=== PATIENT | male | born 1940 | race Caucasian/White ===

== ENCOUNTER 2022-12-03 08:54 | Observation (INO) ==
--- NOTE | 2022-12-03 09:11 | Emergency Department Note ---
Impression & Plan Incarcerated left inguinal hernia, Abdominal pain ED Provider Note NAME: TIMI YARBROUGH JR AGE: 82 SEX: M : 1940 ARRIVES VIA: Walk-In INFORMANT: Patient ED PROVIDER(S): Javi Jj DO CHIEF COMPLAINT: abdominal pain HPI: Patient is an 82-year-old male who presents to the ER for abdominal pain. He notes he has been having this off and on since Friday and his groin by his hernia. He was seen and evaluated and discharged. He followed up with general surgery and they sent him in today for the OR. He denies any headache or change in vision. Constant pain. No dysuria, urgency, or frequency. Cannot have a bowel movement. Has not moved his bowels in 2 days. No other exacerbating or remitting factors. PAST MEDICAL HISTORY:See Below PAST SURGICAL HISTORY:See Below FAMILY HISTORY:See Below SOCIAL HISTORY:See Below HOME MEDICATIONS:See Below ALLERGIES:See Below VITALS:See Below PHYSICAL EXAMINATION: GENERAL: Sitting up in bed, lert, well appearing, well nourished, no distress, non-toxic EYE EXAM: normal conjunctiva. OROPHARYNX: mucous membranes are moist LUNGS: Clear to auscultation. Normal chest wall mechanics HEART: no murmurs, S1 normal and S2 normal ABDOMEN: abdomen soft, non-tender, normo-active bowel sounds, no masses, no rebound or guarding. : Right inguinal hernia which is nonreducible and tender UPPER EXTREMITIES: upper extremities are grossly normal. LOWER EXTREMITIES: No pitting edema. NEURO EXAM: Normal sensorium, cranial nerves II-XII grossly intact, normal speech, no gross weakness of arms, no gross weakness of legs. MEDICAL DECISION MAKING: Patient is an 82-year-old male who presents ER for above-stated complaint. External records reviewed. Upon arrival discussed with Jodie Hoang from general surgery who recommends hold on CT and they will evaluate and likely take to the OR. IV was established blood work was obtained. Labs show no significant leukocytosis or anemia. BMP with mild hypokalemia 2.9. LFTs bilirubin was unremarkable. Lipase was normal. COVID was negative. Discussed with general surgery. Patient was evaluated at bedside. Patient was taken and admitted to the general surgery service with above-stated complaint. Patient was taken to the OR. Triage Nursing notes reviewed. Limited review of prior medical records performed Vital Signs: reviewed and remarkable for no significant abnormalities Differential diagnosis: Differential diagnoses includes but is not limited to gastritis, peptic ulcer disease, GERD, gallbladder disease, pancreatitis, small bowel obstruction, appendicitis, diverticulitis, hernia, urinary tract infection, torsion, perforation, trauma, infectious. ER treatment provided: See below Diagnostics interpreted by me include EKG and cardiac monitoring as listed be low: -Cardiac Monitoring: An order was placed for continuous cardiac monitoring. The monitor shows a rate of 60 with sinus rhythm. -ECG: none -Laboratory studies:Interpreted by me as stated above in MDM and shown below. Imaging studies: Xrays: As interpreted by me:none CTs show: none Consultation(s): D/w Gen surg and they took Pt to the OR. Procedures:none Critical Care: None Past Med/Surg History Medical History Hypertension Kidney stones Surgical History History of arthroscopic knee surgery History of surgery kidney stone removal Family History Sister Hypertension Mother Hypertension Social History Smoking Status: Never smoker Tobacco Type: Smokeless Tobacco (Dip or Chew) Hx Alcohol Use: No Preferred Language: Spanish marital status: current occupational status: retired How many Children do You have: 4 Feels Safe at Home: Yes during the past year weight has: remained stable Allergies Allergies Allergy/AdvReac Type Severity Reaction Status Date / Time No Known Allergies Allergy Unverified 12/03/22 08:35 Home Meds Home Medications Medication Instructions Recorded Confirmed hydrochlorothiazide 25 mg tablet 25 mg PO DAILY 12/03/22 12/03/22 ibuprofen 200 mg capsule 200 mg PO Q6H PRN 12/03/22 12/03/22 irbesartan 300 mg tablet 300 mg PO DAILY 12/03/22 12/03/22 Results & Data (ED) Vital Signs Vital Signs - 24 hr 12/03/22 08:59 12/03/22 09:30 12/03/22 09:55 Temperature 36.8 C Temperature Source Temporal Artery Scan Pulse Rate 73 67 Pulse Rate [Finger] Pulse Rate from SpO2 Sensor Pulse Rhythm [Finger] Pulse Strength [Finger] Respiratory Rate 16 Respiratory Effort / Characteristics Non-Labored Spontaneous Respiratory Depth Normal Respiratory Pattern Blood Pressure 176/94 H Blood Pressure [Left Arm] Blood Pressure Mean 121 Blood Pressure Mean [Left Arm] Blood Pressure Position [Left Arm] Pulse Oximetry 97 Oxygen Delivery Method Room Air Room Air Sepsis Recent Fever Within 48 Hours No Sepsis New/Unexplained Change in Mental Status No Sepsis Action Taken by Nursing No Action Required 12/03/22 11:41 12/03/22 09:15 12/03/22 09:16 Temperature Temperature Source Pulse Rate 65 Pulse Rate [Finger] Pulse Rate from SpO2 Sensor 65 Pulse Rhythm [Finger] Pulse Strength [Finger] Respiratory Rate 21 Respiratory Effort / Characteristics Respiratory Depth Respiratory Pattern Blood Pressure 152/93 H Blood Pressure [Left Arm] Blood Pressure Mean 112 Blood Pressure Mean [Left Arm] Blood Pressure Position [Left Arm] Pulse Oximetry 97 Oxygen Delivery Method Room Air Sepsis Recent Fever Within 48 Hours Sepsis New/Unexplained Change in Mental Status Sepsis Action Taken by Nursing 12/03/22 09:30 12/03/22 09:30 12/03/22 10:00 Temperature Temperature Source Pulse Rate 67 Pulse Rate [Finger] Pulse Rate from SpO2 Sensor 64 Pulse Rhythm [Finger] Pulse Strength [Finger] Respiratory Rate 19 Respiratory Effort / Characteristics Respiratory Depth Respiratory Pattern Blood Pressure 174/97 H 141/71 H Blood Pressure [Left Arm] Blood Pressure Mean 122 94 Blood Pressure Mean [Left Arm] Blood Pressure Position [Left Arm] Pulse Oximetry 97 Oxygen Delivery Method Sepsis Recent Fever Within 48 Hours Sepsis New/Unexplained Change in Mental Status Sepsis Action Taken by Nursing 12/03/22 10:00 12/03/22 10:30 12/03/22 10:30 Temperature Temperature Source Pulse Rate 60 55 L Pulse Rate [Finger] Pulse Rate from SpO2 Sensor 56 L Pulse Rhythm [Finger] Pulse Strength [Finger] Respiratory Rate 15 12 Respiratory Effort / Characteristics Respiratory Depth Respiratory Pattern Blood Pressure 160/84 H Blood Pressure [Left Arm] Blood Pressure Mean 109 Blood Pressure Mean [Left Arm] Blood Pressure Position [Left Arm] Pulse Oximetry 95 Oxygen Delivery Method Sepsis Recent Fever Within 48 Hours Sepsis New/Unexplained Change in Mental Status Sepsis Action Taken by Nursing 12/03/22 11:00 12/03/22 11:00 12/03/22 11:30 Temperature Temperature Source Pulse Rate 71 Pulse Rate [Finger] Pulse Rate from SpO2 Sensor 57 L Pulse Rhythm [Finger] Pulse Strength [Finger] Respiratory Rate 16 Respiratory Effort / Characteristics Respiratory Depth Respiratory Pattern Blood Pressure 158/83 H 168/93 H Blood Pressure [Left Arm] Blood Pressure Mean 108 118 Blood Pressure Mean [Left Arm] Blood Pressure Position [Left Arm] Pulse Oximetry 97 Oxygen Delivery Method Sepsis Recent Fever Within 48 Hours Sepsis New/Unexplained Change in Mental Status Sepsis Action Taken by Nursing 12/03/22 11:30 12/03/22 11:48 Temperature 36.4 C L Temperature Source Oral Pulse Rate 58 L Pulse Rate [Finger] 60 Pulse Rate from SpO2 Sensor Pulse Rhythm [Finger] Regular Pulse Strength [Finger] Normal Respiratory Rate 15 18 Respiratory Effort / Characteristics Non-Labored Spontaneous Respiratory Depth Normal Respiratory Pattern Regular Blood Pressure Blood Pressure [Left Arm] 185/93 H Blood Pressure Mean Blood Pressure Mean [Left Arm] 123 Blood Pressure Position [Left Arm] Sitting Pulse Oximetry 94 Oxygen Delivery Method Room Air Sepsis Recent Fever Within 48 Hours Sepsis New/Unexplained Change in Mental Status Sepsis Action Taken by Nursing Laboratory Data 12/03/22 09:12 12/03/22 09:12 Lab Results 12/03/22 12/03/22 12/03/22 Range/Units 09:12 09:12 09:12 WBC 9.14 (4.8-10.8) K/ul RBC 4.67 L (4.70-6.10) M/uL Hgb 15.5 (14.0-18.0) g/dl Hct 42.0 (42.0-52.0) % MCV 89.9 (80.0-100.0) fL MCH 33.2 (25.0-34.0) pg MCHC 36.9 H (32.0-36.0) g/dL RDW Std Deviation 39.9 (36.4-46.3) fL RDW Coeff of Edward 12.4 (11.5-14.5) % Plt Count 229 (130-400) K/uL MPV 9.2 L (9.4-12.4) fL Immature Gran % (Auto) 0.5 % Neut % (Auto) 81.1 % Lymph % (Auto) 10.8 % Fountain % (Auto) 5.9 % Eos % (Auto) 1.2 % Baso % (Auto) 0.5 % Neut # (Auto) 7.40 H (1.40-6.50) K/uL Lymph # (Auto) 0.99 L (1.2-3.4) K/uL Fountain # (Auto) 0.54 (0.11-0.59) K/uL Eos # (Auto) 0.11 (0-0.50) K/uL Baso # (Auto) 0.05 (0-0.2) K/uL Immature Gran # (Auto) 0.05 (0.01-0.20) K/uL Sodium 139 (136-145) mmol/L Potassium 2.9 L (3.5-5.1) mmol/L Chloride 100 (98-107) mmol/L Carbon Dioxide 31 (21-32) mmol/L Anion Gap 8 (3-11) BUN 15 (6-23) mg/dl Creatinine 1.25 (0.6-1.4) mg/dl Est Cr Clr Drug Dosing 46.9 ml/min Est GFR ( Amer) 61.8 ml/min Est GFR (Non-Af Amer) 53.3 ml/min BUN/Creatinine Ratio 12.0 (10-20) Glucose 125 H (70-99(Fasting)) mg/dl Lactate 1.4 (0.4-2.0) mmol/L Calcium 9.9 (8.6-10.3) mg/dl Total Bilirubin 1.6 H (0.2-1.0) mg/dl AST 31 (13-39) U/L ALT 39 (7-52) U/L Alkaline Phosphatase 59 (34-104) U/L Total Protein 8.4 H (6.0-8.3) gm/dl Albumin 5.0 (3.4-5.0) gm/dl Globulin 3.4 (2.5-4.0) gm/dl Albumin/Globulin Ratio 1.5 (0.9-2) Lipase 18 (11-82) U/L SARS-CoV-2, RNA, NAAT (NEGATIVE) 12/03/22 Range/Units 09:42 WBC (4.8-10.8) K/ul RBC (4.70-6.10) M/uL Hgb (14.0-18.0) g/dl Hct (42.0-52.0) % MCV (80.0-100.0) fL MCH (25.0-34.0) pg MCHC (32.0-36.0) g/dL RDW Std Deviation (36.4-46.3) fL RDW Coeff of Edward (11.5-14.5) % Plt Count (130-400) K/uL MPV (9.4-12.4) fL Immature Gran % (Auto) % Neut % (Auto) % Lymph % (Auto) % Fountain % (Auto) % Eos % (Auto) % Baso % (Auto) % Neut # (Auto) (1.40-6.50) K/uL Lymph # (Auto) (1.2-3.4) K/uL Fountain # (Auto) (0.11-0.59) K/uL Eos # (Auto) (0-0.50) K/uL Baso # (Auto) (0-0.2) K/uL Immature Gran # (Auto) (0.01-0.20) K/uL Sodium (136-145) mmol/L Potassium (3.5-5.1) mmol/L Chloride (98-107) mmol/L Carbon Dioxide (21-32) mmol/L Anion Gap (3-11) BUN (6-23) mg/dl Creatinine (0.6-1.4) mg/dl Est Cr Clr Drug Dosing ml/min Est GFR ( Amer) ml/min Est GFR (Non-Af Amer) ml/min BUN/Creatinine Ratio (10-20) Glucose (70-99(Fasting)) mg/dl Lactate (0.4-2.0) mmol/L Calcium (8.6-10.3) mg/dl Total Bilirubin (0.2-1.0) mg/dl AST (13-39) U/L ALT (7-52) U/L Alkaline Phosphatase (34-104) U/L Total Protein (6.0-8.3) gm/dl Albumin (3.4-5.0) gm/dl Globulin (2.5-4.0) gm/dl Albumin/Globulin Ratio (0.9-2) Lipase (11-82) U/L SARS-CoV-2, RNA, NAAT NEGATIVE (NEGATIVE) Administered Medications Potassium Chloride (K tSas / Wtr) 10 meq in 100 mls @ 100 mls/hr IV Q1H NANCY Stop: 12/03/22 16:59 Last Admin: 12/03/22 12:49 Dose: 100 mls/hr Documented By: CONNOR Discontinued Medications Sodium Chloride (Nss 1000ml) 1,000 mls @ 999 mls/hr IV .Q1H1M ONE Stop: 12/03/22 10:15 Last Infusion: 12/03/22 10:45 Dose: 0 mls/hr Documented By: Admin: 12/03/22 09:40 Dose: 999 mls/hr Documented By: TAQUERIA Cefazolin Sodium (Ancef 2000mg) 2,000 mg in 15 mls @ 3.75 mls/min IV PREOP ONE; Protocol Stop: 12/03/22 12:49 Last Admin: 12/03/22 12:58 Dose: 3.75 mls/min Documented By: [id number] Morphine Sulfate (Morphine Sulfate 10 Mg/Ml Carp/Vial) 6 mg IV NOW STA Stop: 12/03/22 09:16 Last Admin: 12/03/22 09:39 Dose: Not Given Documented By: TAQUERIA Morphine Sulfate (Morphine Sulfate 4 Mg/Ml 1 Ml Carp\Vial) Confirm Administered Dose 4 mg .ROUTE .STK-MED ONE Stop: 12/03/22 09:38 Last Admin: 12/03/22 09:39 Dose: 4 mg Documented By: TAQUERIA Morphine Sulfate (Morphine Sulfate 2 Mg/Ml Carp) Confirm Administered Dose 2 mg .ROUTE .STK-MED ONE Stop: 12/03/22 09:38 Last Admin: 12/03/22 09:39 Dose: 2 mg Documented By: TAQUERIA Ondansetron HCl (Ondansetron Inj 2 Mg/Ml 2 Ml Vial) 4 mg IV NOW STA Stop: 12/03/22 09:16 Last Admin: 12/03/22 09:39 Dose: 4 mg Documented By: TAQUERIA Discharge Plan Visit Data Chief Complaint: Groin Pain Stated Complaint: GROIN PAIN, DR REF OVER ED Provider: Javi Jj Discharge Problem: Incarcerated left inguinal hernia, Abdominal pain Patient Disposition: Admitted As Inpatient Discharge Instructions Interventions: ED Discharge Assessment Last Done: 12/03/22 11:41
[2022-12-03] MEDS ORDERED: MoRPHine SULFATE 10 MG/ML CARP/VIAL IV STA (09:15)
[2022-12-03] MEDS ORDERED: SODIUM CHLORIDE 0.9% 1000ML 1,000 ML IV ONE (09:15)
[2022-12-03] MEDS ORDERED: ONDANSETRON INJ 2 MG/ML 2 ML VIAL IV STA (09:15)
[2022-12-03 09:35] LABS: Basophils # (auto) 0.05 K/uL (0-0.2); Basophils % (auto) 0.5 %; Eosinophils # (auto) 0.11 K/uL (0-0.50); Eosinophils % (auto) 1.2 %; Hemoglobin 15.5 g/dl (14.0-18.0); Immature Granulocytes # (auto) 0.05 K/uL (0.01-0.20); Immature Granulocytes % (auto) 0.5 %; Lymphocytes # (auto) 0.99 K/uL (1.2-3.4); Lymphocytes % (auto) 10.8 %; Mean Corpuscular Hemoglobin 33.2 pg (25.0-34.0); Mean Corpuscular Hgb Conc 36.9 g/dL (32.0-36.0); Mean Corpuscular Volume 89.9 fL (80.0-100.0); Mean Platelet Volume 9.2 fL (9.4-12.4); Monocytes # (auto) 0.54 K/uL (0.11-0.59); Monocytes % (auto) 5.9 %; Neutrophils % (auto) 81.1 %; Platelet Count 229 K/uL (130-400); RDW Coefficient of Variation 12.4 % (11.5-14.5); RDW Standard Deviation 39.9 fL (36.4-46.3); Red Blood Count 4.67 M/uL (4.70-6.10); White Blood Count 9.14 K/ul (4.8-10.8)
[2022-12-03] MEDS ORDERED: MoRPHine SULFATE 4 MG/ML 1 ML CARP\\VIAL ONE (09:37)
[2022-12-03] MEDS ORDERED: MoRPHine SULFATE 2 MG/ML CARP ONE (09:37)
[2022-12-03 10:01] LABS: Albumin Globulin Ratio 1.5 (0.9-2); Bilirubin,Total 1.6 mg/dl (0.2-1.0); Calcium 9.9 mg/dl (8.6-10.3); Creatinine Clr Calc Pharmacy 46.9 ml/min; Est GFR (African American) 61.8 ml/min; Est GFR (Non-African American) 53.3 ml/min; Globulin 3.4 gm/dl (2.5-4.0); Potassium 2.9 mmol/L (3.5-5.1); Total Protein 8.4 gm/dl (6.0-8.3)
--- NOTE | 2022-12-03 10:01 | History & Physical Report ---
Date of Service December 03, 2022 Assessment & Plan (1) Incarcerated left inguinal hernia: Plan: This is an 82y M with a PMH of HTN who presents to the [facility] ED as a referral from the surgical office for L groin pain. Of significance the patient was in the ER over the weekend with similar pain/symptoms. He underwent both a CT a/p and scrotal US that confirmed he has a fat and bowel containing left inguinal hernia as well as a fat-containing right inguinal hernia without evidence of obstruction. He had no obstructive symptoms and decision was made to send him home with close outpatient follow up. Unfortunately he developed worsening pain yesterday evening and at his office visit this AM it was decided he should come to the ER for evaluation and likely surgical management. In the ER WBC 9, BMP pending. Vitals are stable outside of hypertension. On exam he has a n onreducible L inguinal hernia that is tender to palpation. R groin region appears soft and non tender. Will plan on taking the patient to the OR today and booked him for robotic vs laparoscopic left possible right inguinal hernia repair. Keep NPO with IVF. Dr. Mcdaniel will be by to obtain consent. (2) Right inguinal hernia: History of Present Illness Primary Care Provider: Dio Echevarria This is an 82y M with a PMH of HTN who presents to the [facility] ED as a referral from the surgical office for L groin pain. Of significance the patient was in the ER over the wknd with similar pain/symptoms. He underwent both a CT a/p and scrotal US that confirmed he has a fat and bowel containing left inguinal hernia as well as a fat-containing right inguinal hernia without evidence of obstruction. The hernia was partially reducible and the patient ate and ended up going home with plans for close follow up in clinic. Unfortunately, the patient states his pain worsened overnight and he could not get comfortable. He only got 2 hours of sleep. He reports some nausea associated with this. When he came to the office for his appointment it was deemed he should come to the ER for evaluation and possible surgical intervention. Patient tells me he noticed the bulge in his L groin over the last several months, but it has not caused him pain with the exception over the last week or so. He denies any symptoms on the R side. He has been nothing to eat/drink since midnight. Last BM was yesterday and was normal. He denies any emesis, CP/SOB, F/C, or abdominal pain. No prior history of inguinal hernia repair. Reports he is fairly healthy and active at baseline. Allergies Allergy/AdvReac Type Severity Reaction Status Date / Time No Known Allergies Allergy Unverified 12/03/22 08:35 Home Medications Medication Instructions Recorded Confirmed Type hydrochlorothiazide 25 mg tablet 25 mg PO DAILY 12/03/22 12/03/22 History ibuprofen 200 mg capsule 200 mg PO Q6H PRN 12/03/22 12/03/22 History irbesartan 300 mg tablet 300 mg PO DAILY 12/03/22 12/03/22 History Past Med/Surg History Medical History Hypertension Kidney stones Surgical History History of arthroscopic knee surgery History of surgery kidney stone removal Family History Sister Hypertension Mother Hypertension Social History Smoking Status: Never smoker Tobacco Type: Smokeless Tobacco (Dip or Chew) Hx Alcohol Use: No Preferred Language: Chinese marital status: current occupational status: retired How many Children do You have: 4 Feels Safe at Home: Yes during the past year weight has: remained stable Review of Systems Constitutional: no fever, no chills and no fatigue Respiratory: no dyspnea Cardiovascular: no chest pain Gastrointestinal: + nausea; no abdominal pain, no vomiting and no change in bowel habits L groin pain and bulge Genitourinary: no problem reported Physical Exam Physical Exam: awake/alert, no distress Respiratory: normal respiratory effort Gastrointestinal (Abdomen): Percussion/Palpation: abdomen soft; abdomen nontender R inguinal region soft non tender. Left inguinal hernia tender to palpation, non reducible, firm. no skin changes Results & Data Results & Data Vital Signs (Past 12 Hours) Vital Signs Temp Pulse Resp BP Pulse Ox O2 Del Method 12/03/22 09:30 67 12/03/22 08:59 36.8 C 73 16 176/94 H 97 Room Air Diagnostic Findings CT abd pelvis IV con only CLINICAL HISTORY: left groin possible hernia TECHNIQUE: Helical axial images of the abdomen and pelvis were obtained and displayed. Automated dose lowering techniques and/or adjustment according to patient size were utilized for this exam. This exam was performed with intravenous contrast. CT DOSE: 443.17 mGy.cm COMPARISON: Comparison is made to scrotal ultrasound 11/30/2022 FINDINGS: Lower chest: No acute abnormality. Liver: Multiple liver cysts are seen. Hepatic steatosis is seen. Gallbladder and biliary tree: Numerous gallstones are seen. No intra- or extrahepatic biliary ductal dilation. Pancreas: Unremarkable, no focal lesions. Spleen: Splenule is incidentally noted. Adrenals: Unremarkable. Kidneys and ureters: Unremarkable. Bladder: Diffuse homogeneous wall thickening is seen. Reproductive organs: Markedly prostatomegaly is seen. Bowel: Diverticulosis is seen without evidence of diverticulitis. Patient is status post appendectomy. Lymph nodes Retroperitoneal: Unremarkable. Pelvic: Unremarkable. Mesenteric: Unremarkable. Peritoneum: Normal. Vessels: Atherosclerotic calcifications are seen. Abdominal wall: Fat-containing right inguinal hernia and fat bowel containing left inguinal hernia noted. Bones: Degenerative changes in the visualized spine. IMPRESSION: There is a fat and bowel containing left inguinal hernia as well as a fat- containing right inguinal hernia without evidence of obstruction. ACT 112: Negative or not required by law. Electronically signed by: Ronnie Chapa M.D. 11/30/2022 12:55 PM US scrotum/testicle CLINICAL HISTORY: left groin pain TECHNIQUE: Real-time sonographic images of the scrotal contents were obtained. Comparison: None available at the time of this dictation. FINDINGS: The right testicle measures 2.3 x 1.1 x 1.6 cm. The left testicle measures 3.3 x 1.5 x 2.0 cm. Doppler flow is seen bilaterally. Microlithiasis is seen on the left. Right epididymal head cyst measures 0.3 x 0.2 x 0.2 cm. Left epididymis is unremarkable. A small left hydrocele is seen. Small left varicocele noted. Large fat and bowel containing inguinal hernia is seen on the left, partially reducible. IMPRESSION: 1. No evidence of torsion. 2. Left bowel containing inguinal hernia, partially reducible. 3. Left varicocele. Additional findings as above. ACT 112: Negative or not required by law. Electronically signed by: Ronnie Chapa M.D. 11/30/2022 12:18 PM Supervising Physician Co-Signing Physician Notes Patient seen and examined, agree with above. 82-year-old male presented over the weekend with left groin pain found to have bowel containing left inguinal hernia along with fat-containing right inguinal hernia. His symptoms had significantly improved by time of surgical evaluation and he was discharged home. He followed up in the clinic today with Dr. Parra and noted increasing pain in his left groin starting last night. No vomiting or signs of obstruction. Dr. Parra referred to the emergency department and discussed this with me. On exam he is afebrile stable vitals. Firm, incarcerated left inguinal hernia with no skin changes, abdomen nondistended. CT from over the weekend reviewed and agree with the assessment of fat-containing right inguinal hernia and fat and bowel containing left inguinal hernia with no obstruction or strangulation. 82y/o male with incarcerated left inguinal hernia and asymptomatic right inguinal hernia. We will attempt to repair this robotically, and if there is no issues on the left then we will repair the right at the same time. plan for robotic assisted laparoscopic left inguinal hernia repair, possible robotic assisted right inguinal hernia repair, possible open risks discussed to include but not limited to bleeding, infection, recurrence, chronic pain, damage to surrounding structures including testicle, conversion open, bowel resection, need for future or more extensive surgery, and risks of anesthesia educated on signs and symptoms of incarceration, obstruction, and strangulation Wound care instructions, activity restrictions, and return precautions given Possible discharge this afternoon versus tomorrow if no issues during surgery PG Care Time/CCT Total # of Minutes Spent Total Time Spent with Patient: Total time spent is greater than 50% in coordination of care (as documented) at patient's floor/unit and/or counseling patient: Coding Level of Care Code 91202 INT INP/OBS CARE MIN Diagnoses Incarcerated left inguinal hernia K40.30 Right inguinal hernia K40.90
--- NOTE | 2022-12-03 12:06 | Anesthesiology Consultation ---
Date of Service December 03, 2022 Assessment & Plan (1) Encounter for pre-operative examination: Chart Review Chart Review: Acceptable Risk for Surgery History Surgery Operation Date: 12/03/22 10:00 Proposed Procedures p Robotic assisted Laparoscopic Inguinal Hernia Repair Bilateral - Wilfredo Mcdaniel DO, FACS Height/Weight Height: 5 ft 7 in Weight: 82.7 kg Allergies Allergy/AdvReac Type Severity Reaction Status Date / Time No Known Allergies Allergy Unverified 12/03/22 08:35 Medications Home Medications Medication Instructions Recorded Confirmed Last Taken hydrochlorothiazide 25 mg tablet 25 mg PO DAILY 12/03/22 12/03/22 Unknown ibuprofen 200 mg capsule 200 mg PO Q6H PRN 12/03/22 12/03/22 Unknown irbesartan 300 mg tablet 300 mg PO DAILY 12/03/22 12/03/22 Unknown NPO Date Last Intake of Fluids: 12/02/22 Time Last Intake of Fluids: 23:00 Date Last Intake of Solids: 12/02/22 Time Last Intake of Solids: 23:00 Past Medical History Medical History Hypertension Kidney stones Past Family History Family History Sister Hypertension Mother Hypertension Past Surgical History Surgical History History of arthroscopic knee surgery History of surgery kidney stone removal Social History Smoking Status: Never smoker Hx Alcohol Use: No Physical Exam Vital Signs Last Vital Signs Temp 36.4 C L 12/03/22 11:48 Pulse 60 12/03/22 11:48 Resp 18 12/03/22 11:48 BP 185/93 H 12/03/22 11:48 Pulse Ox 94 12/03/22 11:48 O2 Del Method Room Air 12/03/22 11:48 Testing Laboratory Results 12/03/22 09:12 12/03/22 09:12
[2022-12-03] MEDS ORDERED: ONDANSETRON INJ 2 MG/ML 2 ML VIAL ONE (12:39)
[2022-12-03] MEDS ORDERED: LIDOCAINE 2% 2 ML VIAL/AMP(20MG/ML) INFIL ONE ×2 (12:39→12:43)
[2022-12-03] MEDS ORDERED: KETOROLAC 30 MG/ML VIAL IV PRN (12:39)
[2022-12-03] MEDS ORDERED: ONDANSETRON INJ 2 MG/ML 2 ML VIAL IV PRN (12:39)
[2022-12-03] MEDS ORDERED: fentaNYL citrate PF 100 MCG/2 ML VIAL ONE ×2 (12:39→13:54)
[2022-12-03] MEDS ORDERED: LABETALOL HCL IV 5 MG/ML 20ML IV PRN (12:39)
[2022-12-03] MEDS ORDERED: ATROPINE SULFATE 0.1 MG/ML 10ML SYR IV PRN (12:39)
[2022-12-03] MEDS ORDERED: PROPOFOL IV EMULSION 10 MG/ML 20 ML VIAL IV ONE (12:39)
[2022-12-03] MEDS ORDERED: ROCURONIUM BROMIDE 10 MG/ML 5 ML VIAL IV ONE ×6 (12:39→14:26)
[2022-12-03] MEDS ORDERED: BUPIVACAINE 0.5 % 5 MG/1 ML MPF 30ML VIAL ONE (12:45)
[2022-12-03] MEDS ORDERED: ceFAZolin 2000MG 2,000 MG/15 ML SYR IV ONE (12:46)
[2022-12-03] MEDS ORDERED: ceFAZolin 2,000 MG/15 ML IV PUSH IV ONE (12:47)
[2022-12-03] MEDS: POTASSIUM CHLORIDE / WTR 10 MEQ/100 ML PLCT IV SCH ×3 (12:49→17:46)
[2022-12-03] MEDS ORDERED: DEXAMETHASONE SOD INJ 4 MG/ML VIAL ONE (14:14)
[2022-12-03] MEDS ORDERED: BUPIVACAINE LIPOSOME 1.3% 266 MG/20 ML VIAL ONE (15:44)
[2022-12-03] MEDS ORDERED: NEOSTIGMINE METHYLSULFATE 1 MG/ML 10ML VIAL ONE (15:53)
[2022-12-03] MEDS ORDERED: GLYCOPYRROLATE 0.2 MG/ML VIAL ONE (15:53)
--- NOTE | 2022-12-03 16:02 | Operative Report ---
PG Post Operative Report Pre & Post Diagnosis Operation Date: 12/03/22 10:00 Pre-Op Diagnosis: Incarcerated left inguinal hernia Post-Op Diagnosis: Bilateral incarcerated inguinal hernia I identified the patient and participated in the time-out.: Yes Procedure Operation Date: 12/03/22 10:00 Actual Procedures p Robotic assisted Laparoscopic Inguinal Hernia Repair Bilateral(Bilateral) - Wilfredo Mcdaniel DO, GIOVANY Surgeon Wilfredo Mcdaniel DO, FACS Critical Care Registered Nurse Jodie Gomez Estimated Blood Loss 10 Findings Consistent with Post-Op Diagnosis Incarcerated left indirect inguinal hernia containing sigmoid colon, reduced under direct visualization, colon viable with no evidence of perforation. Incarcerated direct inguinal hernia on the right. ProGrip mesh placed bilaterally. Significant scarring on the right from prior appendectomy, peritoneum with multiple tears, reapproximated with 2-0 V-Loc suture. Exparel injected. Specimens None Anesthesia Type General Complications none Disposition Accompanied Patient To Recovery: No Disposition: Recovery Room Indications 82-year-old male referred from the general surgery clinic to the emergency department for incarcerated left inguinal hernia with known right inguinal hernia, plan for robotic assisted laparoscopic left inguinal hernia, possible right inguinal hernia, possible open. The risks of the procedure were discussed, all questions were answered, and the patient agreed to proceed with surgery as planned. Description of Procedure The patient was properly identified, consented, and taken to the operating room where he was placed in the supine position. General endotracheal anesthesia was induced. SCDs and a safety belt were placed. A mccallum catheter was placed. Pr eoperative antibiotics were administered. The patient's groins and abdomen were prepped and draped in the standard sterile fashion. Surgical timeout was performed and all parties were in agreement that this was the correct patient and procedure to be performed and we continued as planned. An incision was made in the upper abdomen just off of the midline. The Veress needle was inserted and saline drop test confirmed entry into the abdomen. The abdomen was insufflated with carbon dioxide which the patient tolerated without incident. The Veress needle was removed and the abdomen was entered using the Optiview technique and a 5 mm camera. The introducer was removed and the camera reinserted. No damage from initial trocar placement or Veress needle placement was identified. There were no abnormalities in the 4 quadrants of the abdomen. A incarcerated indirect inguinal hernia was identified on the left containing sigmoid colon. This was due to reduced under direct visualization and the bowel was inspected. It was viable with no evidence of perforation. There was an incarcerated direct inguinal hernia on the right containing fat. 8 mm robotic ports were then placed in the right upper quadrant and left upper quadrant. The patient was placed in the Trendelenburg position. The robot was docked, and the camera and instruments were inserted. Dissection started on the left. The peritoneum was incised approximately 6 cm above the defect, starting at the medial umbilical ligament and working laterally. The peritoneal flap was raised. Dissection began laterally at the a nterior superior iliac spine. Hector's ligament was then dissected medially. The cord structures were circumferentially dissected. A large indirect inguinal hernia defect was identified. The peritoneum was reduced and the cord was skeletonized. A moderate to large cord lipoma was dissected away from the cord structures. Attention then turned to the right. The peritoneum was incised approximately 6 cm above the defect, starting at the medial umbilical ligament and working laterally. The peritoneal flap was raised. There was significant scarring from prior appendectomy and it was difficult to properly dissect out the correct plane. This was also made more difficult by the large incarcerated direct inguinal hernia that contained preperitoneal fat. During the dissection the peritoneum had a long vertical tear in it. Dissection began laterally at the anterior superior iliac spine. Hector's ligament was then dissected medially. The cord structures were circumferentially dissected. A large incarcerated direct inguinal hernia containing preperitoneal fat was identified. The fat was reduced. The peritoneum was reduced and the cord was skeletonized. Progrip mesh was placed bilaterally and covered the direct, indirect, and femoral spaces on each side. The peritoneal flap on the left was then closed with a running absorbable barbed suture. The peritoneal flap on the right was then closed with a running absorbable barbed suture. I was able to reapproximate the superior portion starting from lateral to medial. I then repaired the vertical tear starting from the most distal aspect and working away superiorly. Once this was accomplished I took another 2-0 barbed absorbable suture and repaired from medial to lateral. There were no defects remaining within the peritoneum and the mesh was completely covered. Exparel was then injected. The robot was undocked and the ports were removed. The skin of all port sites were closed with 4-0 Monocryl subcuticular suture, and Dermabond was placed over the incisions. The patient was extubated in the operating room and taken to the PACU for recovery without apparent incident. All sponge, instrument, and needle counts were correct at the conclusion of the procedure. The patient tolerated the procedure well. The physician's internet marketing assistant was present and scrubbed for the entirety of the procedure, and was critical in positioning the patient, prepping and draping, retraction and exposure, driving the laparoscope, assistance with exchange of the robotic instruments, closure of the incisions, and placement of the arturo ssings. I attest to the content of the Intraoperative Record and any orders documented therein. Any exceptions are noted below.
[2022-12-03] MEDS ORDERED: TAMSULOSIN HCL 0.4 MG CAP PO ONE (16:08)
[2022-12-03] MEDS: fentaNYL citrate PF 100 MCG/2 ML VIAL IV PRN ×4 (16:29→16:58)
--- NOTE | 2022-12-03 17:31 | Anesthesiology Progress Note ---
Date of Service December 03, 2022 Anesthesia Post Procedure Vital Signs Vital Signs: Temp Pulse Pulse Pulse Resp BP BP 12/03/22 17:20 36.9 C 69 14 169/90 H 12/03/22 17:10 68 16 173/90 H 12/03/22 17:00 67 12 167/95 H 12/03/22 16:50 69 15 178/93 H 12/03/22 16:40 71 17 195/105 H 12/03/22 16:30 73 14 190/103 H 12/03/22 16:20 74 15 185/85 H 12/03/22 16:13 36.5 C 69 15 180/93 H 12/03/22 11:48 36.4 C L 60 18 185/93 H 12/03/22 11:30 58 L 15 12/03/22 11:30 168/93 H 12/03/22 11:00 71 16 12/03/22 11:00 158/83 H 12/03/22 10:30 55 L 12 12/03/22 10:30 160/84 H 12/03/22 10:00 60 15 12/03/22 10:00 141/71 H 12/03/22 09:30 67 19 12/03/22 09:30 174/97 H 12/03/22 09:16 65 21 12/03/22 09:15 152/93 H 12/03/22 11:41 12/03/22 09:55 12/03/22 09:30 67 12/03/22 08:59 36.8 C 73 16 176/94 H Pulse Ox O2 Del Method O2 Flow Rate 12/03/22 17:20 96 Nasal Cannula 2 12/03/22 17:10 96 Nasal Cannula 2 12/03/22 17:00 96 Nasal Cannula 2 12/03/22 16:50 97 Nasal Cannula 2 12/03/22 16:40 96 Nasal Cannula 2 12/03/22 16:30 95 Oxymask 14 12/03/22 16:20 96 Oxymask 14 12/03/22 16:13 93 Oxymask 14 12/03/22 11:48 94 Room Air 12/03/22 11:30 12/03/22 11:30 12/03/22 11:00 97 12/03/22 11:00 12/03/22 10:30 95 12/03/22 10:30 12/03/22 10:00 12/03/22 10:00 12/03/22 09:30 97 12/03/22 09:30 12/03/22 09:16 97 12/03/22 09:15 12/03/22 11:41 Room Air 12/03/22 09:55 Room Air 12/03/22 09:30 12/03/22 08:59 97 Room Air Pain Intensity Right Abdomen: Pain Intensity: 3 Transfer of Care Handoff Completed per policy Notes Mental Status: alert / awake / arousable and participated in evaluation Patient Amnestic to Procedure: Yes Nausea / Vomiting: adequately controlled Pain: adequately controlled Airway Patency, RR, SpO2: stable & adequate BP & HR: stable & adequate Hydration State: stable & adequate Anesthetic Complications: no major complications apparent and Pt Satisfied with anesthetic care
[2022-12-03] MEDS ORDERED: MoRPHine SULFATE 2 MG/ML CARP IV PRN (17:32)
[2022-12-03] MEDS ORDERED: ACETAMINOPHEN 325 MG TAB PO PRN (17:32)
[2022-12-03] MEDS ORDERED: MoRPHine SULFATE 4 MG/ML 1 ML CARP\\VIAL IV PRN (17:32)
[2022-12-03] MEDS ORDERED: oxyCODONE HCL IR 5 MG TAB (IMMEDIATE RELEASE) PO PRN (17:32)
[2022-12-03] MEDS: LACTATED RINGER'S 1,000 ML IV SCH (18:36)
[2022-12-03] MEDS: oxyCODONE HCL IR 5 MG TAB (IMMEDIATE RELEASE) PO PRN (23:31)
[2022-12-04 00:13] LABS: Appearance Urine Clear (Clear); Bacteria Urine Automated Negative (Negative); Bilirubin Urine Negative (Negative); Blood Urine Trace (Negative); Color Urine Yellow; Glucose Urine UA Negative (Negative); Ketones Urine Trace (Negative); Leukocyte Esterase Urine Negative (Negative); Nitrite Urine Negative (Negative); Protein Urine Negative (Negative); RBC Urine Automated 0-4 /hpf (0-4); Specific Gravity Urine 1.016 (1.000-1.030); Urobilinogen Urine Negative (Negative)
[2022-12-04] MEDS: LACTATED RINGER'S 1,000 ML IV SCH (07:22)
[2022-12-04] MEDS: oxyCODONE HCL IR 5 MG TAB (IMMEDIATE RELEASE) PO PRN (07:24)
[2022-12-04 07:43] LABS: Basophils # (auto) 0.02 K/uL (0-0.2); Basophils % (auto) 0.2 %; Eosinophils # (auto) 0.04 K/uL (0-0.50); Eosinophils % (auto) 0.5 %; Hematocrit (blood only) 32.3 % (42.0-52.0); Hemoglobin 12.2 g/dl (14.0-18.0); Immature Granulocytes # (auto) 0.03 K/uL (0.01-0.20); Immature Granulocytes % (auto) 0.4 %; Lymphocytes # (auto) 0.95 K/uL (1.2-3.4); Lymphocytes % (auto) 11.6 %; Mean Corpuscular Hemoglobin 33.4 pg (25.0-34.0); Mean Corpuscular Hgb Conc 37.8 g/dL (32.0-36.0); Mean Corpuscular Volume 88.5 fL (80.0-100.0); Mean Platelet Volume 9.3 fL (9.4-12.4); Monocytes # (auto) 0.63 K/uL (0.11-0.59); Monocytes % (auto) 7.7 %; Neutrophils # (auto) 6.55 K/uL (1.40-6.50); Neutrophils % (auto) 79.6 %; Platelet Count 185 K/uL (130-400); RDW Coefficient of Variation 12.1 % (11.5-14.5); RDW Standard Deviation 39.2 fL (36.4-46.3); Red Blood Count 3.65 M/uL (4.70-6.10); White Blood Count 8.22 K/ul (4.8-10.8)
[2022-12-04 08:14] LABS: BUN Creatinine Ratio 11.8 (10-20); Calcium 8.5 mg/dl (8.6-10.3); Creatinine Clr Calc Pharmacy 49.8 ml/min; Est GFR (African American) 65.5 ml/min; Est GFR (Non-African American) 56.5 ml/min; Potassium 3.1 mmol/L (3.5-5.1)
[2022-12-04] MEDS ORDERED: TAMSULOSIN HCL 0.4 MG CAP PO SCH (09:00)
[2022-12-04] MEDS ORDERED: POTASSIUM CHLORIDE CRTAB 20 MEQ TABCR PO STA (09:04)
--- NOTE | 2022-12-04 09:08 | Surgery Progress Note ---
Date of Service December 04, 2022 Assessment & Plan (1) History of robot-assisted repair of inguinal hernia: Plan: POD#1, pain controlled, urinating. d/c to home if tolerating diet and ambulating oral potassium replacement protonix for heartburn d/c to home f/u in 2 weeks wound care instructions, activity restriction and return precautions given Admission and Anticipated Discharge Date Admission Date: December 03, 2022 Subjective POD#1 robotic incarcerated bilateral inguinal hernias. straight cath overnight, no voiding normally. Sore, but pain controlled. +heartburn Physical Exam Constitutional: WD/WN, vitals as above Respiratory: normal respiratory effort, lungs clear to auscultation Cardiovascular: RRR, no murmur, no edema Gastrointestinal (Abdomen): normal bowel sounds, soft, nontender, no hepatosplenomegaly Inspection/Auscultation: + abdominal surgical incision (dermabond, healing well) Percussion/Palpation: no hernia (no recurrence) Results & Data Vital Signs (Past 12 Hours) Vital Signs Temp Pulse Resp BP Pulse Ox O2 Del Method 12/04/22 07:14 36.9 C 68 20 152/78 H 93 Room Air 12/04/22 03:10 36.8 C 74 16 138/86 98 Room Air 12/03/22 23:48 36.6 C 73 16 158/82 H 95 Room Air Laboratory Results Laboratory Results - last 24 hr 12/03/22 12/03/22 12/03/22 09:12 09:12 09:12 WBC 9.14 RBC 4.67 L Hgb 15.5 Hct 42.0 MCV 89.9 MCH 33.2 MCHC 36.9 H RDW Std Deviation 39.9 RDW Coeff of Edward 12.4 Plt Count 229 MPV 9.2 L Immature Gran % (Auto) 0.5 Neut % (Auto) 81.1 Lymph % (Auto) 10.8 [place] % (Auto) 5.9 Eos % (Auto) 1.2 Baso % (Auto) 0.5 Neut # (Auto) 7.40 H Lymph # (Auto) 0.99 L [place] # (Auto) 0.54 Eos # (Auto) 0.11 Baso # (Auto) 0.05 Immature Gran # (Auto) 0.05 Sodium 139 Potassium 2.9 L Chloride 100 Carbon Dioxide 31 Anion Gap 8 BUN 15 Creatinine 1.25 Est Cr Clr Drug Dosing 46.9 Est GFR ( Amer) 61.8 Est GFR (Non-Af Amer) 53.3 BUN/Creatinine Ratio 12.0 Glucose 125 H Lactate 1.4 Calcium 9.9 Total Bilirubin 1.6 H AST 31 ALT 39 Alkaline Phosphatase 59 Total Protein 8.4 H Albumin 5.0 Globulin 3.4 Albumin/Globulin Ratio 1.5 Lipase 18 Urine Color Urine Appearance Urine pH Ur Specific [place] Urine Protein Urine Glucose (UA) Urine Ketones Urine Blood Urine Nitrite Urine Bilirubin Urine Urobilinogen Ur Leukocyte Esterase Urine WBC (Auto) Urine RBC (Auto) U Hyaline Cast (Auto) U Epithel Cells (Auto) Urine Bacteria (Auto) SARS-CoV-2, RNA, NAAT 12/03/22 12/03/22 12/04/22 09:42 23:45 07:03 WBC 8.22 RBC 3.65 L Hgb 12.2 L D Hct 32.3 L MCV 88.5 MCH 33.4 MCHC 37.8 H RDW Std Deviation 39.2 RDW Coeff of Edward 12.1 Plt Count 185 MPV 9.3 L Immature Gran % (Auto) 0.4 Neut % (Auto) 79.6 Lymph % (Auto) 11.6 [place] % (Auto) 7.7 Eos % (Auto) 0.5 Baso % (Auto) 0.2 Neut # (Auto) 6.55 H Lymph # (Auto) 0.95 L [place] # (Auto) 0.63 H Eos # (Auto) 0.04 Baso # (Auto) 0.02 Immature Gran # (Auto) 0.03 Sodium Potassium Chloride Carbon Dioxide Anion Gap BUN Creatinine Est Cr Clr Drug Dosing Est GFR ( Amer) Est GFR (Non-Af Amer) BUN/Creatinine Ratio Glucose Lactate Calcium Total Bilirubin AST ALT Alkaline Phosphatase Total Protein Albumin Globulin Albumin/Globulin Ratio Lipase Urine Color Yellow Urine Appearance Clear Urine pH 6.0 Ur Specific [place] 1.016 Urine Protein Negative Urine Glucose (UA) Negative Urine Ketones Trace H Urine Blood Trace H Urine Nitrite Negative Urine Bilirubin Negative Urine Urobilinogen Negative Ur Leukocyte Esterase Negative Urine WBC (Auto) 1-5 Urine RBC (Auto) 0-4 U Hyaline Cast (Auto) 1-5 U Epithel Cells (Auto) 5-10 H Urine Bacteria (Auto) Negative SARS-CoV-2, RNA, NAAT NEGATIVE 12/04/22 07:03 WBC RBC Hgb Hct MCV MCH MCHC RDW Std Deviation RDW Coeff of Edward Plt Count MPV Immature Gran % (Auto) Neut % (Auto) Lymph % (Auto) [place] % (Auto) Eos % (Auto) Baso % (Auto) Neut # (Auto) Lymph # (Auto) [place] # (Auto) Eos # (Auto) Baso # (Auto) Immature Gran # (Auto) Sodium 138 Potassium 3.1 L Chloride 101 Carbon Dioxide 30 Anion Gap 7 BUN 14 Creatinine 1.19 Est Cr Clr Drug Dosing 49.8 Est GFR ( Amer) 65.5 Est GFR (Non-Af Amer) 56.5 BUN/Creatinine Ratio 11.8 Glucose 108 H Lactate Calcium 8.5 L Total Bilirubin AST ALT Alkaline Phosphatase Total Protein Albumin Globulin Albumin/Globulin Ratio Lipase Urine Color Urine Appearance Urine pH Ur Specific [place] Urine Protein Urine Glucose (UA) Urine Ketones Urine Blood Urine Nitrite Urine Bilirubin Urine Urobilinogen Ur Leukocyte Esterase Urine WBC (Auto) Urine RBC (Auto) U Hyaline Cast (Auto) U Epithel Cells (Auto) Urine Bacteria (Auto) SARS-CoV-2, RNA, NAAT PG Care Time/CCT Total # of Minutes Spent Total Time Spent with Patient: Total time spent is greater than 50% in coordination of care (as documented) at patient's floor/unit and/or counseling patient: Coding Level of Care Code 64526 Post Operative Follow-Up Diagnoses History of robot-assisted repair of inguinal hernia Z98.890
[2022-12-04] MEDS ORDERED: POTASSIUM CHLORIDE CRTAB 20 MEQ TABCR PO SCH (09:15)
[2022-12-04] MEDS ORDERED: PANTOprazole 40 MG TAB PO SCH (09:15)
--- NOTE | 2022-12-09 13:27 | Discharge Summary ---
Date of Service December 04, 2022 Admission HPI Per Admitting Provider This is an 82y M with a PMH of HTN who presents to the [facility] ED as a referral from the surgical office for L groin pain. Of significance the patient was in the ER over the wknd with similar pain/symptoms. He underwent both a CT a/p and scrotal US that confirmed he has a fat and bowel containing left inguinal hernia as well as a fat-containing right inguinal hernia without evidence of obstruction. The hernia was partially reducible and the patient ate and ended up going home with plans for close follow up in clinic. Unfortunately, the patient states his pain worsened overnight and he could not get comfortable. He only got 2 hours of sleep. He reports some nausea associated with this. When he came to the office for his appointment it was deemed he should come to the ER for evaluation and possible surgical intervention. Patient tells me he noticed the bulge in his L groin over the last several months, but it has not caused him pain with the exception over the last week or so. He denies any symptoms on the R side. He has been nothing to eat/drink since midnight. Last BM was yesterday and was normal. He denies any emesis, CP/SOB, F/C, or abdominal pain. No prior history of inguinal hernia repair. Reports he is fairly healthy and active at baseline. Principal Diagnosis history of robotic assisted bilateral inguinal hernia repair Discharge Exam awake/alert, no distress Respiratory normal respiratory effort Gastrointestinal (Abdomen) Inspection/Auscultation: + abdominal surgical incision (c/d/i with dermabond) Percussion/Palpation: abdomen soft Discharge Data Allergies Allergy/AdvReac Type Severity Reaction Status Date / Time No Known Allergies Allergy Unverified 12/03/22 08:35 Consultations 12/03/22 09:15 ED Decision to Admit Stat Procedures Performed Operation Date: 12/03/22 10:00 Actual Procedures p Robotic assisted Laparoscopic Inguinal Hernia Repair Bilateral(Bilateral) - Wilfredo Mcdaniel DO, FACS Hospital Course (1) History of robot-assisted repair of inguinal hernia: This is an 82y M who was referred to the ED on 12/03/22 after being evaluated in clinic for symptomatic left inguinal hernia. He was recently in the ER with inguinal pain, however due to nonobstructive symptoms seen on CT scan he was sent home with close follow up. Unfortunately the patient's pain re-developed and it was discussed patient may benefit from a more urgent repair after his evaluation in the office and he was sent to the ER. Patient with palpable and tender left inguinal hernia with incarcerated bowel. Recent imaging also revealed a fat containing right inguinal hernia that is asymptomatic at this time. The patient was kept NPO and was booked for the OR with Dr. Mcdaniel on 12/03/22 for a robotic assisted bilateral inguinal hernia repair. The patient tolerated the procedure well, see op note for full details. Post operatively patient's pain remained controlled. Diet tolerated. He did require straight cath x2 for urinary retention, but was able to void spontaneously thereafter. On POD#1 he was deemed stable for discharge to home with plans to schedule follow up within 1-2 weeks. Total Time Total Time Spent Total Time Spent (In Minutes): 15 Discharge Plan Discharge Items Patient Disposition: Home - Self-Care Reason For Visit: BILATERAL INGUINAL HERNIA REPAIR Discharge Diagnosis: bilateral inguinal hernia repair Activity: Per Instructions section Lifting: No more than 10 pounds Bathing Comment: may shower; no soaking in tubs/pools Exercise/Sports: Wait until after follow-up appointment Driving/Machine Use: wait at least 1 week; no driving while taking narcotics for pain Non-emergency contact: Surgeon Call non-emergency contact if: you have any medication questions, your symptoms worsen, your pain is not controlled, you have a fever, your temperature is above 101.5, your wound has increased redness, your wound has increased drainage and your wound pain has increased Follow-up/Referrals: Wilfredo Mcdaniel DO, FACS [Physician] - 12/16/22 10:30 am ( follow up in clinic within 2 weeks) Dio Echevarria [Primary Care Provider] - Diet: Regular Addtl Attending Provider Instructions: You may ice your groin(s) on and off alternating every 20 minutes as needed to help with pain and swelling Pending Studies at Discharge: No Stand-Alone Forms: My [employer] Smoking Cessation Medications and DC Order Prescriptions: New oxycodone-acetaminophen [Percocet] 5-325 mg tablet 1 - 2 tab PO .q4-6h PRN (Reason: pain, for initial therapy, max 6 tabs per day) Qty: 15 0RF Continued ibuprofen 200 mg capsule 200 mg PO Q6H PRN irbesartan 300 mg tablet 300 mg PO DAILY hydrochlorothiazide 25 mg tablet 25 mg PO DAILY Discharge Orders: Discharge Order (Routine); Ordered 12/04/22 Ordered By: Jodie Grove/Other Patient Handouts: Having Hernia Surgery: Patch Repair Admission Data Admit Date/Time: 12/03/22 16:11 Attending Provider: Wilfredo Mcdaniel Admit Provider: Wilfredo Mcdaniel Primary Care Provider: Dio Echevarria Other Interventions: Discharge Summary Assessment (RN) Last Done: 12/04/22 10:55 Coding Level of Care Code 01971 IN/OBS DISCH 30 MIN/LESS Diagnoses History of robot-assisted repair of inguinal hernia Z98.890
== END 2022-12-04 11:16 | disposition home or self-care (01) ==
LOC: ED 08:54 → OR 11:41 → 3N 11:41 → OR 11:43
DX: K40.00 Bilateral inguinal hernia, with obstruction, without gangrene, not specified as recurrent; Z20.822 Contact with and (suspected) exposure to COVID-19; Z79.899 Other long term (current) drug therapy